=== PATIENT | male | born 1985 | race Two or more races ===

== ENCOUNTER 2025-04-13 13:47 | Emergency (ER) | payer OTHER ==
[~2025-04-13] VITALS: Ht 182.9 cm; Wt 137.4 kg
[2025-04-13 13:49] VITALS: BP 213/138; PULSE 69; RESP 16; TEMP 97.3; O2SAT 96
[2025-04-13] MEDS ORDERED: IBUP-1455 PO (16:04)
[2025-04-13] MEDS ORDERED: METH-1181 PO (16:04)
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
== END 2025-04-13 18:27 | disposition home or self-care (01) ==
LOC: ER 13:47
DX: M54.2 Cervicalgia (principal); M25.512 Pain in left shoulder; V87.9XXA Person injured in other specified (collision)(noncollision) transport accidents involving nonmotor vehicle (traffic), initial encounter; Y93.89 Activity, other specified; Y92.89 Other specified places as the place of occurrence of the external cause; Y99.8 Other external cause status